=== PATIENT | female | born 1985 | race Caucasian/White ===

== ENCOUNTER → 2016-08-16 07:48 | Outpatient (CLI) | payer MEDICAID ==
[2015-03-14 07:04] VITALS: BMI 23.0
[~2016-08-16 07:48] MED LIST: HYDROCODON-ACE1 EAC7 PO
== END | disposition home or self-care (01) ==
LOC: D.RAD 07:48
DX: R10.13 Epigastric pain (principal); R11.0 Nausea

== ENCOUNTER → 2016-09-19 09:04 | Outpatient (CLI) | payer MEDICAID ==
[2015-03-14 07:04] VITALS: BMI 23.0
== END | disposition home or self-care (01) ==
LOC: D.CT 08-23 09:30
DX: R10.9 Unspecified abdominal pain (principal); R63.4 Abnormal weight loss; R11.0 Nausea

== ENCOUNTER → 2018-06-30 07:48 | Outpatient (CLI) | payer MEDICAID ==
[2015-03-14 07:04] VITALS: BMI 23.0
== END | disposition home or self-care (01) ==
LOC: D.MRI 05-13 15:00
PROVIDERS: ATTEND Psychiatry & Neurology Neurology
DX: G43.109 Migraine with aura, not intractable, without status migrainosus (principal)

== ENCOUNTER → 2018-07-04 08:49 | Outpatient (CLI) | payer MEDICAID ==
[2015-03-14 07:04] VITALS: BMI 23.0
== END | disposition home or self-care (01) ==
LOC: D.MRI 08:49
PROVIDERS: ATTEND Orthopaedic Surgery
DX: M54.12 Radiculopathy, cervical region (principal)